=== PATIENT | male | born 1945 | race Caucasian/White ===

== ENCOUNTER 2019-04-19 11:00 | Inpatient (IN) | payer OTHER, MEDICAID ==
[~2019-04-19] VITALS: Ht 170.2 cm; Wt 72.6 kg
[2019-04-19] MEDS ORDERED: SODIUM CHLORIDE 0.9% 1,000 ML IVB ONE (11:33)
[2019-04-19] MEDS ORDERED: ONDANSETRON HCL 4 MG/2 ML VIAL IV ONE (11:45)
[2019-04-19] MEDS ORDERED: MORPHINE SULFATE 4 MG/ML SYR/VIAL IV ONE (11:45)
[2019-04-19 12:01] LABS: Basophils # (auto) 0 uL; Basophils % (auto) 0.2 % (0.0-2.0); Eosinophils # (auto) 0 uL; Eosinophils % (auto) 0.1 % (0.0-7.0); Hematocrit 36.2 % (41.0-53.0); Hemoglobin 12.4 g/dL (13.5-17.5); Lymphocytes # (auto) 0.6 uL; Lymphocytes % (auto) 4.5 % (10.0-50.0); Mean Corpuscular Hemoglobin 32.6 pg (28.0-32.0); Mean Corpuscular Hgb Conc. 34.3 g/dL (32.0-36.0); Mean Corpuscular Volume 94.9 fL (80.0-100.0); Monocytes # (auto) 0.4 uL; Monocytes % (auto) 2.8 % (0.0-12.0); Neutrophils # (auto) 11.6 uL; Neutrophils % (auto) 92.4 % (37.0-80.0); Platelet Count (auto) 428 10^3/uL (140-450); Red Blood Cells 3.81 10^6/uL (4.5-5.90); Red Cell Distribution Width 14.3 % (11.8-14.3); White Blood Cell 12.5 10^3/uL (4.4-10.8)
[2019-04-19 12:27] LABS: Albumin 3.7 g/dL (3.4-5.0); BUN/Creatinine Ratio 12.8; Bilirubin, Total 0.5 mg/dL (0.2-1.0); Total Protein 7.3 g/dL (6.4-8.2)
[2019-04-19 12:39] LABS: Urine Bacteria NONE SEEN /hpf (None Seen); Urine Blood 2+ /uL (Negative); Urine Hyaline Cast FEW /lpf (0 - 2); Urine Mucus FEW (None Seen); Urine Specific Gravity 1.025 (1.001-1.035); Urine WBC 165 /hpf (0 - 3)
[2019-04-19] MEDS ORDERED: PROMETHAZINE HCL 25 MG/ML 1ML IV PRN (14:15)
[2019-04-19] MEDS ORDERED: NITROGLYCERIN 0.4 MG SL TAB SL PRN (14:15)
[2019-04-19] MEDS ORDERED: MORPHINE SULF INJ 2 MG/ML SYRINGE 1ML IV PRN (14:15)
[2019-04-19] MEDS ORDERED: ACETAMINOPHEN 500 MG TAB PO PRN (14:15)
[2019-04-19] MEDS ORDERED: traMADol HCL 50 MG TAB PO PRN (14:15)
[2019-04-19] MEDS ORDERED: cefTRIAXone 1GM/50ML D5W 50 ML IV ONE (14:15)
[2019-04-19] MEDS: SODIUM CHLORIDE 0.9% 1,000 ML IV SCH (14:47)
[2019-04-19 14:51] LABS: Amylase 83 U/L (25-115); Lipase 43 U/L (73-393)
--- NOTE | 2019-04-19 17:30 | NUR ---
Telemetry admit from INNA QUINTANILLA,LIU MUNIZ admitted to Telemetry unit room 246-A after SBAR received. Patient oriented to Camille Brown, primary RN, unit, room, bed, and unit policies regarding patient care and visiting hours. Patient now on continuous telemetry monitoring, tele box #16 and telemetry reading on arrival to unit is sinus rhythm 90bpm with a BBB. Patient placed on bedside oxygen, weighed by bed scale and encouraged to call if they need something. All questions and concerns addressed, patient verbalized understanding.
[2019-04-19 17:46] VITALS: BP 163/94
[2019-04-19] MEDS: MORPHINE SULFATE 4 MG/ML SYR/VIAL IV PRN (18:01)
--- NOTE | 2019-04-19 18:55 | NUR ---
CLOSING NOTE Patient is awake and alert. No S/S of distress/SOB or pain. Bed locked in the lowest position. Bed rails up x2. Call light in reach. Will endorse care to night nurse. Addendum: 04/19/19 at 1856 by Camille Brown RN ENDORSED MED REC TO NIGHT RN.
--- NOTE | 2019-04-19 19:16 | NUR ---
Opening Shift Note Received report from day shift nurse, Camille. Assumed care of patient. Patient is awake, alert, and orientated x 4. Pt is on 3L of oxygen via Nasal cannula. No S/S of distress/SOB, nor pain. No chest pain at this moment. Bed is in lowest position with side rails up x 2. Bed braked are locked and call light is with in reach. HOB is 30 degrees. Instructed on POC and to call for assist PRN, will continue to monitor for changes Q1hr and PRN.
[2019-04-19] MEDS ORDERED: TAMS0.4C36 PO (19:58)
[2019-04-19] MEDS ORDERED: SERT-274 PO (19:58)
[2019-04-19] MEDS ORDERED: ASPI325T25 PO (19:58)
[2019-04-19] MEDS ORDERED: MELO1TAB56 PO (19:58)
[2019-04-19] MEDS ORDERED: TRAM-711 PO (19:58)
[2019-04-19] MEDS ORDERED: HYDR-4833 PO ×2 (19:58→20:11)
[2019-04-19] MEDS ORDERED: PRE5T PO (19:58)
[2019-04-19] MEDS ORDERED: IPRIH INH (20:11)
[2019-04-19] MEDS ORDERED: ALBUAER3 IN (20:11)
[2019-04-19] MEDS ORDERED: [UNRECOGNIZED DRUG - CODE] PO (20:11)
[2019-04-19 21:00] VITALS: BP 158/75
--- NOTE | 2019-04-19 23:02 | NUR ---
Urine urine culture sent to lab.
[2019-04-20] MEDS: SODIUM CHLORIDE 0.9% 1,000 ML IV SCH ×2 (00:13→09:25)
[2019-04-20] MEDS: MORPHINE SULFATE 4 MG/ML SYR/VIAL IV PRN ×2 (02:51→13:57)
[2019-04-20 05:07] VITALS: BP 158/95
[2019-04-20 06:29] LABS: Basophils # (auto) 0.1 uL; Basophils % (auto) 0.6 % (0.0-2.0); Eosinophils # (auto) 0.1 uL; Eosinophils % (auto) 1.3 % (0.0-7.0); Hematocrit 32.5 % (41.0-53.0); Hemoglobin 11.1 g/dL (13.5-17.5); Lymphocytes # (auto) 1.2 uL; Lymphocytes % (auto) 13.3 % (10.0-50.0); Mean Corpuscular Hemoglobin 32.5 pg (28.0-32.0); Mean Corpuscular Hgb Conc. 34.1 g/dL (32.0-36.0); Mean Corpuscular Volume 95.2 fL (80.0-100.0); Monocytes # (auto) 0.6 uL; Monocytes % (auto) 6.9 % (0.0-12.0); Neutrophils # (auto) 7.1 uL; Neutrophils % (auto) 77.9 % (37.0-80.0); Nucleated Red Blood Cells % 0.1 %; Platelet Count (auto) 361 10^3/uL (140-450); Red Blood Cells 3.41 10^6/uL (4.5-5.90); White Blood Cell 9.1 10^3/uL (4.4-10.8)
[2019-04-20 07:03] LABS: Albumin 2.9 g/dL (3.4-5.0); BUN/Creatinine Ratio 12.9; Bilirubin, Total 0.4 mg/dL (0.2-1.0); Calcium 8.4 mg/dL (8.5-10.1); Potassium 3.8 mmol/L (3.5-5.1); Total Protein 5.8 g/dL (6.4-8.2)
--- NOTE | 2019-04-20 07:54 | NUR ---
closing notes endorsed care to day shift nurseCamille.
--- NOTE | 2019-04-20 07:55 | NUR ---
Opening Shift Note Assumed care of patient, awake and alert. No S/S of distress/SOB or pain. Instructed on POC and to call for assist PRN, will continue to monitor for changes Q1hr and PRN.
[2019-04-20 09:00] VITALS: BP 144/79
[2019-04-20] MEDS: cefTRIAXone 1GM/50ML D5W 50 ML IV SCH (09:24)
[2019-04-20] MEDS: PANTOPRAZOLE 40 MG TAB PO SCH (09:25)
[2019-04-20] MEDS ORDERED: predniSONE 5 MG TAB PO ONE (11:30)
[2019-04-20] MEDS ORDERED: SERTRALINE HCL 50 MG TAB PO ONE (11:30)
[2019-04-20] MEDS: IPRATROPIUM BROM 0.5 MG/2.5ML INH SOL NEB SCH ×2 (11:42→18:42)
[2019-04-20] MEDS: ALBUTEROL SULF 2.5 MG/0.5ML(0.5%) NEB SOLN NEB SCH ×2 (11:42→18:42)
--- NOTE | 2019-04-20 11:59 | NUR ---
md dueñas rounded on pt new orders noted
--- NOTE | 2019-04-20 12:11 | NUR ---
pt notified of upcoming procedure to amado cartwright, heart monitor discontinued sent to tele room, updated pt that i will insert damian cath when he comes back from procedure
[2019-04-20] MEDS ORDERED: IOHEXOL 300 MG/ML 100ML BOTTLE IJ ONE (12:16)
--- NOTE | 2019-04-20 12:51 | NUR ---
spoke to md pierce regarding consult and md dueñas order, per md bladder scan pt if pt has less than 100ml of urine no need to cath patient, if cath is necessary use a coude catheter
[2019-04-20 12:57] VITALS: BP 144/79
[2019-04-20 13:00] VITALS: BP 146/79
--- NOTE | 2019-04-20 13:05 | NUR ---
pt voided bladder scan done 342 residual left, called er to bullet catheter to station pt states he doesn't feel that there is urine left over but understands procedure
--- NOTE | 2019-04-20 13:50 | NUR ---
Damian catheter insertion Patient assessed and determined to be in need of damian catheter. Order obtained from stan PEREYRA. Patient educated on catheter and reason for insertion. All questions answered. Damian catheter guage coude Liberian inserted with clean sterile technique. Patient tolerated well.16 arabic coude catheter inserted, 200ml clear light yellow urine output noted, stat lock in place pt tolerated well
[2019-04-20 17:00] VITALS: BP 149/87
[2019-04-20] MEDS ORDERED: TAMSULOSIN HYDROCHLORIDE 0.4 MG CAP PO SCH (18:00)
--- NOTE | 2019-04-20 19:45 | NUR ---
Opening shift note Pt is resting in bed with eyes open and resp rate is even and unlabored. No s/s of any distress noted at this time. Pt has damian cath draining clear yellow urine to gravity and no complaints at this time. Bed is low, wheels are locked, and call light is with in reach.
[2019-04-20 22:00] VITALS: BP 137/72
[2019-04-21] MEDS: MORPHINE SULFATE 4 MG/ML SYR/VIAL IV PRN ×3 (00:11→11:31)
[2019-04-21 04:55] LABS: Basophils # (auto) 0 uL; Basophils % (auto) 0.4 % (0.0-2.0); Eosinophils # (auto) 0.1 uL; Eosinophils % (auto) 1.4 % (0.0-7.0); Hematocrit 35.7 % (41.0-53.0); Hemoglobin 12.3 g/dL (13.5-17.5); Lymphocytes # (auto) 1.3 uL; Mean Corpuscular Hemoglobin 32.7 pg (28.0-32.0); Mean Corpuscular Hgb Conc. 34.4 g/dL (32.0-36.0); Mean Corpuscular Volume 95.1 fL (80.0-100.0); Monocytes # (auto) 0.6 uL; Neutrophils # (auto) 8.4 uL; Neutrophils % (auto) 80.2 % (37.0-80.0); Platelet Count (auto) 411 10^3/uL (140-450); Red Blood Cells 3.75 10^6/uL (4.5-5.90); Red Cell Distribution Width 14.2 % (11.8-14.3); White Blood Cell 10.4 10^3/uL (4.4-10.8)
[2019-04-21 05:00] VITALS: BP 162/88
[2019-04-21 05:15] LABS: BUN/Creatinine Ratio 11.9; Calcium 8.6 mg/dL (8.5-10.1); Potassium 3.7 mmol/L (3.5-5.1)
[2019-04-21 05:30] LABS: INR 0.95 (0.9-1.15); Partial Thromboplastin Time 26.7 sec (23.64-32.05)
[2019-04-21] MEDS: SODIUM CHLORIDE 0.9% 1,000 ML IV SCH ×2 (06:13→06:39)
[2019-04-21] MEDS: ALBUTEROL SULF 2.5 MG/0.5ML(0.5%) NEB SOLN NEB SCH (06:43)
[2019-04-21] MEDS: IPRATROPIUM BROM 0.5 MG/2.5ML INH SOL NEB SCH (06:43)
[2019-04-21 08:35] VITALS: BP 123/77
[2019-04-21] MEDS: cefTRIAXone 1GM/50ML D5W 50 ML IV SCH (09:37)
[2019-04-21] MEDS: PANTOPRAZOLE 40 MG TAB PO SCH (09:38)
[2019-04-21] MEDS ORDERED: predniSONE 5 MG TAB PO SCH (10:00)
[2019-04-21] MEDS ORDERED: SERTRALINE HCL 50 MG TAB PO SCH (10:00)
[2019-04-21 13:00] VITALS: BP 142/78
[2019-04-21 14:24] VITALS: BP 147/71
--- NOTE | 2019-04-21 15:12 | NUR ---
DISCHARGE INSTRUCTIONS PROVIDED TO PT. PT VERBALIZED UNDERSTANDING FOR PRESCRIPTION ORDERS, AND FOLLOW UP APPOINTMENT WITH PRIMARY CARE PROVIDER AND UROLOGY; CONTACT INFORMATION PROVIDED, ALL QUESTIONS AND CONCERNS ADDRESSED, EDUCATIONAL MATERIAL PROVIDED. LEG BAG APPLIED TO OLMOS CATHETER FOR DISCHARGE, OLMOS CATHETER CARE PROVIDED, PT RETURN DEMONSTRATION ON OLMOS CATHETER CARE. IV CATHETER DC'D; CATHETER INTACT, NO PHLEBITIS. PT SAFELY ESCORTED OUT OF UNIT VIA WHEELCHAIR, ACCOMPANIED BY FAMILY MEMBERS.
== END 2019-04-21 15:20 | disposition home or self-care (01) | DRG 872 ==
LOC: ER 11:00 → TELE 11:01 → TELE-EAST 17:15 → EAST 04-20 15:58
PROVIDERS: ADMIT Internal Medicine; ATTEND Internal Medicine
DX: A41.9 Sepsis, unspecified organism (principal); N39.0 Urinary tract infection, site not specified; N17.9 Acute kidney failure, unspecified; N20.0 Calculus of kidney; N28.1 Cyst of kidney, acquired; F17.210 Nicotine dependence, cigarettes, uncomplicated; J43.9 Emphysema, unspecified; M81.0 Age-related osteoporosis without current pathological fracture; N32.0 Bladder-neck obstruction
CPT/HCPCS: 36415; 74176; 74177; 76700; 80048; 80053; 81001; 82150; 83690; 85025; 85610; 85652; 85730; 87086; 94640; 94761; 96361; 96365; 96375; G0378; J0696; J2405

== ENCOUNTER 2019-04-21 23:23 | Inpatient (IN) | payer OTHER, MEDICAID ==
[~2019-04-21] VITALS: Ht 170.2 cm; Wt 74.6 kg
[~2019-04-21 23:23] MED LIST: ALBUAER3 IN; ASPI325T25 PO; HYDR-4833 PO; IPRIH INH; MELO1TAB56 PO; PRE5T PO; SERT-274 PO; TAMS0.4C36 PO; TRAM-711 PO; [UNRECOGNIZED DRUG - CODE] PO
[2019-04-21] MEDS ORDERED: IPRATROPIUM BROM 0.5 MG/2.5ML INH SOL NEB ONE (23:30)
[2019-04-21] MEDS ORDERED: ALBUTEROL SULF 2.5 MG/0.5ML(0.5%) NEB SOLN HHN STA (23:30)
[2019-04-21 23:49] LABS: Basophils # (auto) 0 uL; Basophils % (auto) 0.1 % (0.0-2.0); Eosinophils # (auto) 0 uL; Eosinophils % (auto) 0.1 % (0.0-7.0); Hematocrit 34.3 % (41.0-53.0); Hemoglobin 11.3 g/dL (13.5-17.5); Lymphocytes # (auto) 0.6 uL; Mean Corpuscular Hemoglobin 31.9 pg (28.0-32.0); Mean Corpuscular Volume 96.8 fL (80.0-100.0); Monocytes # (auto) 0.5 uL; Monocytes % (auto) 3.6 % (0.0-12.0); Neutrophils % (auto) 92.2 % (37.0-80.0); Platelet Count (auto) 449 10^3/uL (140-450); Red Blood Cells 3.55 10^6/uL (4.5-5.90); Red Cell Distribution Width 14.2 % (11.8-14.3); White Blood Cell 15.1 10^3/uL (4.4-10.8)
[2019-04-22] VITALS (71 sets, daily range): BP systolic 61–149; BP diastolic 38–83
[2019-04-22 00:03] LABS: INR 0.99 (0.9-1.15); Partial Thromboplastin Time 23.3 sec (23.64-32.05)
[2019-04-22 00:06] LABS: Alanine Aminotransferase 12 U/L (16-61); Albumin 2.9 g/dL (3.4-5.0); Anion Gap 10 (5-15); Aspartate Aminotransferase 14 U/L (15-37); BUN/Creatinine Ratio 15.4; Blood Urea Nitrogen 19 mg/dL (7-18); Calcium 8.5 mg/dL (8.5-10.1); Carbon Dioxide 24 mmol/L (21-32); Chloride 107 mmol/L (98-107); GFR African American 74 mL/min; GFR Non-African American 61 mL/min; Glucose 159 mg/dL (74-106); Potassium 4.4 mmol/L (3.5-5.1); Sodium 141 mmol/L (136-145)
[2019-04-22 00:11] LABS: Alkaline Phosphatase 61 U/L (45-117); Bilirubin, Total 0.4 mg/dL (0.2-1.0); Total Protein 6.4 g/dL (6.4-8.2)
[2019-04-22] MEDS ORDERED: ALBUTEROL SULF 2.5 MG/0.5ML(0.5%) NEB SOLN NEB ONE (01:45)
[2019-04-22] MEDS ORDERED: IPRATROPIUM BROM 0.5 MG/2.5ML INH SOL NEB ONE (01:45)
[2019-04-22] MEDS ORDERED: methylPREDNISolone SOD SUCC 125 MG/2 ML VL IV ONE (01:45)
[2019-04-22] MEDS ORDERED: DOXYCYCLINE 100MG/250ML 250 ML IV SCH (01:45)
[2019-04-22] MEDS ORDERED: LORazepam 2MG/ML-1ML VIAL ONE (01:48)
[2019-04-22] MEDS ORDERED: LORazepam 2MG/ML-1ML VIAL IV ONE (02:00)
[2019-04-22] MEDS: PROPOFOL 100 ML IV SCH (02:10)
[2019-04-22] MEDS ORDERED: ETOMIDATE (2MG/ML) 20ML VIAL IV ONE ×2 (02:12→02:15)
[2019-04-22] MEDS ORDERED: SUCCINYLCHOLINE CHLORIDE 20 MG/ML 10ML VIAL IV ONE ×2 (02:12→02:15)
[2019-04-22] MEDS: MIDAZOLAM DRIP 50 mg/50mL 50 ML IV SCH ×4 (02:20→18:11)
[2019-04-22] MEDS: ALBUTEROL SULF 2.5 MG/0.5ML(0.5%) NEB SOLN NEB SCH ×6 (02:30→21:57)
[2019-04-22] MEDS: IPRATROPIUM BROM 0.5 MG/2.5ML INH SOL NEB SCH ×6 (02:30→21:57)
[2019-04-22] MEDS ORDERED: NOREPINEPHRINE 8 MG/250ML KIT 250 ML IV ONE (03:07)
[2019-04-22] MEDS: NOREPINEPHRINE 8 MG/250ML KIT 250 ML IV SCH ×2 (03:15→13:45)
[2019-04-22 03:24] LABS: Basophils # (auto) 0 uL; Basophils % (auto) 0.3 % (0.0-2.0); Eosinophils # (auto) 0 uL; Eosinophils % (auto) 0.2 % (0.0-7.0); Hematocrit 28.2 % (41.0-53.0); Hemoglobin 8.8 g/dL (13.5-17.5); Lymphocytes # (auto) 1.3 uL; Lymphocytes % (auto) 9.3 % (10.0-50.0); Mean Corpuscular Hemoglobin 32.6 pg (28.0-32.0); Mean Corpuscular Hgb Conc. 31.4 g/dL (32.0-36.0); Mean Corpuscular Volume 104.1 fL (80.0-100.0); Monocytes # (auto) 0.4 uL; Monocytes % (auto) 2.9 % (0.0-12.0); Neutrophils # (auto) 12.4 uL; Neutrophils % (auto) 87.3 % (37.0-80.0); Nucleated Red Blood Cells % 0.1 %; Platelet Count (auto) 370 10^3/uL (140-450); Red Blood Cells 2.71 10^6/uL (4.5-5.90); Red Cell Distribution Width 15.1 % (11.8-14.3); White Blood Cell 14.2 10^3/uL (4.4-10.8)
[2019-04-22 03:41] LABS: Anion Gap 12 (5-15); BUN/Creatinine Ratio 16.1; Blood Urea Nitrogen 23 mg/dL (7-18); Calcium 7.7 mg/dL (8.5-10.1); Carbon Dioxide 19 mmol/L (21-32); Chloride 110 mmol/L (98-107); GFR African American 62 mL/min; GFR Non-African American 51 mL/min; Glucose 221 mg/dL (74-106); Potassium 4.8 mmol/L (3.5-5.1); Sodium 141 mmol/L (136-145)
[2019-04-22] MEDS: fentaNYL Drip 2500mCg/250mlNS 250 ML IV SCH (04:57)
--- NOTE | 2019-04-22 06:08 | NUR ---
Respiratory note: TITRATED FIO2 TO 70%, RN NOTIFIED.
[2019-04-22] MEDS: methylPREDNISolone SOD SUCC 40 MG/ML VL IV SCH ×2 (06:42→14:21)
--- NOTE | 2019-04-22 07:39 | NUR ---
Respiratory note: TITRATED FIO2 TO 40% POST ABG PER . RN KOBE NOTIFIED.
[2019-04-22] MEDS: PANTOPRAZOLE 40 MG TAB PO SCH ×2 (07:50→10:36)
--- NOTE | 2019-04-22 09:00 | NUR ---
SEE IV SPREAD SHEET FOR TITRATION OF FENTANYL AND VERSED Addendum: 04/22/19 at 2004 by Vy Santana RN Amended: Links added.
--- NOTE | 2019-04-22 09:55 | NUR ---
Respiratory note: TITRATED FIO2 TO 35%.
[2019-04-22] MEDS ORDERED: PANTOPRAZOLE 40 MG/10 ML VIAL INJ IV SCH (10:00)
--- NOTE | 2019-04-22 10:00 | NUR ---
WOUND CARE NOTE: IN TO SEE PATIENT AT THIS TIME FOR SKIN INTEGRITY MONITORING. PATIENT ADMITTED TO [facility] WITH DIAGNOSIS OF COPD EXACERBATION. PATIENT IS INTUBATED, SEDATED IN ER, ON ICU HOSPITAL BED. PATIENT IS WOUND FREE AT THIS TIME. SKIN/WOUND CARE PLAN IMPLEMENTED FOR LOW FLORINA SCORE OF 10. PATIENT WOULD BENEFIT FROM FREQUENT TURN SCHEDULE Q 2 HOURS, PRN CONDITION PERMITS WITH PRESSURE REDISTRIBUTION USING PILLOWS/WEDGES, BID/PRN APPLICATION WITH MOISTURE BARRIER CREAM, OPTIFOAM GENTLE SACRAL DRESSING BID/PRN, DIETARY CONSULT FOR LOW FLORINA, CONTINUED MONITORING BY WOUND CARE TEAM.
[2019-04-22] MEDS ORDERED: LEVOFLOXACIN 500MG 100 ML IV SCH (10:26)
[2019-04-22] MEDS: SERTRALINE HCL 50 MG TAB PO SCH (10:34)
[2019-04-22] MEDS: ASPirin-EC 81 mg tab PO SCH (10:34)
[2019-04-22 12:12] LABS: Basophils # (auto) 0 uL; Eosinophils # (auto) 0 uL; Monocytes # (auto) 0.2 uL; Monocytes % (auto) 1.3 % (0.0-12.0)
[2019-04-22 12:14] LABS: Hematocrit 25.2 % (41.0-53.0); Hemoglobin 8.5 g/dL (13.5-17.5); Lymphocytes # (auto) 0.8 uL; Lymphocytes % (auto) 4.2 % (10.0-50.0); Mean Corpuscular Hemoglobin 32.4 pg (28.0-32.0); Mean Corpuscular Hgb Conc. 33.7 g/dL (32.0-36.0); Mean Corpuscular Volume 96.2 fL (80.0-100.0); Neutrophils # (auto) 17.3 uL; Neutrophils % (auto) 94.5 % (37.0-80.0); Platelet Count (auto) 492 10^3/uL (140-450); Red Blood Cells 2.62 10^6/uL (4.5-5.90); Red Cell Distribution Width 14.3 % (11.8-14.3); White Blood Cell 18.3 10^3/uL (4.4-10.8)
--- NOTE | 2019-04-22 12:30 | NUR ---
DR KUMARI VISITS AND EXAMINES PATIENT - ORDERS RECEIVED.
[2019-04-22] MEDS ORDERED: fentaNYL CITRATE 100 MCG/2 ML VL ONE (12:46)
[2019-04-22] MEDS ORDERED: SODIUM CHLORIDE LOCK 10 ML ONE (12:46)
[2019-04-22] MEDS ORDERED: MIDAZOLAM HCL 5 MG/ML-1ML VIAL ONE (12:46)
[2019-04-22] MEDS ORDERED: diphenhdrAMINE HCL 50 MG/1 ML VL ONE (12:47)
--- NOTE | 2019-04-22 13:00 | NUR ---
DR GRACE AT BEDSIDE FOR EGD.
[2019-04-22] MEDS: SODIUM CHLORIDE 0.9% 1,000 ML IV SCH (13:16)
--- NOTE | 2019-04-22 14:30 | NUR ---
DR GUZMAN NOTIFIED OF LOW URINE OUTPUT.
--- NOTE | 2019-04-22 14:34 | NUR ---
CXR TAKEN TO VERIFY PLACEMENT OF OG TUBE.
[2019-04-22 15:44] LABS: Urine Bacteria FEW /hpf (None Seen); Urine Blood 2+ /uL (Negative); Urine Mucus FEW (None Seen); Urine Specific Gravity 1.019 (1.001-1.035); Urine WBC 18 /hpf (0 - 3)
[2019-04-22] MEDS ORDERED: POTASSIUM CHL 20MEQ/100ML 100 ML IV ONE (16:15)
[2019-04-22] MEDS: TAMSULOSIN HYDROCHLORIDE 0.4 MG CAP PO SCH (18:26)
--- NOTE | 2019-04-22 19:30 | NUR ---
PT SEDATED ON VENT, RESPONDS TO PAINFUL STIMULI, AFEBRILE. ETT 8.0/24LL, VENT SETTINGS: AC14/TV600/FIO2 30%/PEEP5, [id number]%. OLMOS CATH IN PLACE, W/ YELLOW URINE. OGT PLACEMENT CHECKED, CLAMPED. SAFETY PRECAUTIONS IN PLACE. WILL CONTINUE TO MONITOR.
--- NOTE | 2019-04-22 20:00 | NUR ---
BM, MEDIUM SIZED, SOFT DARK BLOODY STOOL, SPECIMEN COLLECTED AND SENT TO LAB.
[2019-04-23] VITALS (87 sets, daily range): BP systolic 85–171; BP diastolic 46–84
--- NOTE | 2019-04-23 | NUR ---
BEDBATH GIVEN, LINENS CHANGED, PT TOLERATED WELL.
[2019-04-23] MEDS: PANTOPRAZOLE 40 MG/10 ML VIAL INJ IV SCH ×3 (00:11→22:33)
[2019-04-23] MEDS: methylPREDNISolone SOD SUCC 40 MG/ML VL IV SCH ×4 (00:12→22:33)
[2019-04-23] MEDS: NOREPINEPHRINE 8 MG/250ML KIT 250 ML IV SCH ×2 (00:13→12:56)
[2019-04-23] MEDS: MIDAZOLAM DRIP 50 mg/50mL 50 ML IV SCH ×4 (00:13→18:49)
[2019-04-23] MEDS: SODIUM CHLORIDE 0.9% 1,000 ML IV SCH ×2 (01:19→14:57)
[2019-04-23] MEDS: PROPOFOL 100 ML IV SCH (02:10)
[2019-04-23] MEDS: IPRATROPIUM BROM 0.5 MG/2.5ML INH SOL NEB SCH ×6 (02:15→21:51)
[2019-04-23] MEDS: ALBUTEROL SULF 2.5 MG/0.5ML(0.5%) NEB SOLN NEB SCH ×6 (02:15→21:51)
--- NOTE | 2019-04-23 04:15 | NUR ---
RT AT BEDSIDE FOR ABG. PT TOLERATING WELL.
[2019-04-23 06:24] LABS: Hemoglobin 7.2 g/dL (13.5-17.5)
[2019-04-23 06:26] LABS: Hematocrit 21.2 % (41.0-53.0); Mean Corpuscular Hemoglobin 32.7 pg (28.0-32.0); Mean Corpuscular Hgb Conc. 33.8 g/dL (32.0-36.0); Mean Corpuscular Volume 96.6 fL (80.0-100.0); Platelet Count (auto) 365 10^3/uL (140-450); Red Cell Distribution Width 14.4 % (11.8-14.3)
[2019-04-23 06:30] LABS: Band Neutrophils % (manual) 0; Basophils % (manual) 0 (0.0-2.0); Blast Cells 0; Eosinophils % (manual) 0 (0-7); Metamyelocytes % 0; Myelocytes % 0; Promyelocytes % 0; Reactive Lymphocytes 0
[2019-04-23 06:35] LABS: Albumin 2.3 g/dL (3.4-5.0); Calcium 7.8 mg/dL (8.5-10.1); Magnesium 1.9 mg/dL (1.6-2.6)
[2019-04-23 06:38] LABS: BUN/Creatinine Ratio 18.2; Bilirubin, Total 0.2 mg/dL (0.2-1.0); Total Protein 5.2 g/dL (6.4-8.2)
[2019-04-23] MEDS: fentaNYL Drip 2500mCg/250mlNS 250 ML IV SCH ×2 (06:39→21:22)
[2019-04-23 06:43] LABS: Lymphocytes % (manual) 4 (10.0-50.0); Monocytes % (manual) 7 (0-12)
--- NOTE | 2019-04-23 07:00 | NUR ---
Pt being admitted to ICU- Patient is an "ICU ER hold" Note: Report from Lidya this morning LIU QUINTANILLA admitted to ICU -ER hold at this time on bedside monitor, and ventilator. Patient in bed bed, connected to ICU monitoring and oxygen, and [facility] Patient unresponsive primary RN Sol Goodson. NOTE: See interventions for specific patient details.
--- NOTE | 2019-04-23 08:10 | NUR ---
ICU ADMIT- MRSA SWAB SENT TO LAB.
[2019-04-23] MEDS ORDERED: LEVOFLOXACIN 250MG 50 ML IV SCH (10:00)
[2019-04-23] MEDS: ASPirin-EC 81 mg tab PO SCH (10:18)
[2019-04-23] MEDS: SERTRALINE HCL 50 MG TAB PO SCH (10:18)
--- NOTE | 2019-04-23 11:00 | NUR ---
CONSULTS NOTIFIED BY LEATHER STRIPPING MACHINE OPERATOR: *DR. CULVER AND NEPHROLOGY.
--- NOTE | 2019-04-23 11:51 | NUR ---
Respiratory note: DR KUMARI AT BEDSIDE, ORDERED NEW VENT SETTINGS: PCV RR 20, PRESSURE 20, I TIME 0.8, PEEP +8, FIO2 40%. PT TOLERATING CHANGES WELL WITH BETTER VENT SYNCHRONY. ABG TO FOLLOW. NOTIFIED SUDHA FORMAN OF CHANGES. WILL CONTINUE TO MONITOR.
--- NOTE | 2019-04-23 11:53 | NUR ---
DR. KUMARI AT BEDSIDE: 2 MD CONSENT FOR BRONCH SIGNED AND DR. KUMARI SIGNED WELL.
[2019-04-23] MEDS ORDERED: BENZOCAINE (DENTAL) 20 % SPRAY 60ML MT ONE (12:38)
[2019-04-23] MEDS ORDERED: LIDOCAINE 2%HCL (LOCAL ANESTH.) INJ 20ML MDV ONE (12:38)
[2019-04-23] MEDS ORDERED: EPINEPHrine HCL 1 MG/1 ML AMP ONE (12:38)
[2019-04-23] MEDS ORDERED: LIDOCAINE HCL 2% TOP JELLY 5ML TOP ONE (12:38)
[2019-04-23] MEDS ORDERED: SODIUM CHLORIDE LOCK 20 ML ONE (12:38)
[2019-04-23] MEDS ORDERED: ACETYLCYSTEINE 10 %(100MG/ML) SOL 4ML NEB ONE (12:45)
--- NOTE | 2019-04-23 12:45 | NUR ---
Dr. Ojeda at bedside: Patient assessed no new orders.
--- NOTE | 2019-04-23 12:59 | NUR ---
PATIENT SEEN AND ASSESSED BY DR. JOYCE AT BEDSIDE.
[2019-04-23] MEDS ORDERED: ACETYLCYSTEINE 20%(200MG/ML) SOLN 30ML ONE (13:04)
[2019-04-23] MEDS ORDERED: ACETYLCYSTEINE 10 %(100MG/ML) SOL 4ML ONE (13:04)
--- NOTE | 2019-04-23 13:05 | NUR ---
Dr. Fenton and team at the bedside for Bronchoscopy procedure.
--- NOTE | 2019-04-23 13:28 | NUR ---
Dr. Gonsales ordered labs- and one unit PRBC's after Type and Cross.
--- NOTE | 2019-04-23 13:30 | NUR ---
Respiratory note: DR KUMARI, OR TEAM, AND THIS RT AT BEDSIDE FOR BRONCHOSCOPY. PROCEDURE COMPLETED WITHOUT INCIDENT.
--- NOTE | 2019-04-23 14:23 | NUR ---
Dr. Wang at bedside: Monitor strict I&O. Addendum: 04/23/19 at 1425 by Sol Goodson RN Wrong patient.
--- NOTE | 2019-04-23 15:26 | NUR ---
PULMONOLOGY IN ICU DR KUMARI AWARE OF PENDING TRANSFER OF PATIENT FROM ER TO ICU BED 109. DR KUMARI REVIEWED LATEST ABG AND ORDERS RECEIVED ONCE PATIENT ARRIVES TO UNIT WITH REPEAT ABG ONE HOUR AFTER. TRANSPORT R.T. WILL BE NOTIFIED.
[2019-04-23] MEDS ORDERED: cefTRIAXone 1GM/50ML D5W 50 ML IV ONE (15:30)
[2019-04-23] MEDS ORDERED: SODIUM BICARBONATE 8.4 % INJ 50ML VIAL IV ONE (15:45)
--- NOTE | 2019-04-23 16:01 | NUR ---
SBAR report given to SUDHA Mclean in the ICU unit.
--- NOTE | 2019-04-23 16:15 | NUR ---
Patient transported to ICU via bed: RT bagging patient, on alarm security or surveillance monitor and 02. Patient stable on arrival and hooked up to bedside monitor and ventilator. SUDHA Mclean at bedside.
--- NOTE | 2019-04-23 16:20 | NUR ---
NUTRITION CONSULT/ASSESSMENT NOTES Please refer to link notes of nutrition screen form filed under the intervention section of the plan of care for further details. Est. Needs: 1850 kcal to 2200 kcal (25-30 kcal/kgBW), 58 gms to 73 gms pro (0.8-1.0 gms/kgBW). Will continue to monitor pertinent labs and reassess nutrient need prn Thank you for this consult.
--- NOTE | 2019-04-23 16:21 | NUR ---
CONTACT HOSPITALIST REPORT RECEIVED FROM SUDHA FORMAN, THIS NURSE NOTIFIED THAT BLOOD TRANSFUSION IS PENDING AND NO FAMILY AVAILABLE TO SIGN CONSNET. CONTACT DR GUZMAN TO INFORM OF PENDING 1U PRBC AND NO FAMILY AVAILABLE TO SIGN CONSENT. DR GUZMAN STATED HE WOULD COME TO UNIT TO SIGN CONSENT ALONG WITH DR KUMARI. AWAITING PATIENT ARRIVAL TO ICU.
--- NOTE | 2019-04-23 16:24 | NUR ---
Admit to ICU from ER on vent LIU QUINTANILLA admitted to ICU via gurney on inverted block operator, intubated and being bagged by Respiratory Therapist. Patient transferred to bed, connected to mechanical ventilator by therapist, LANG at bedside. Patient connected to ICU monitoring, [facility], oriented to Caridad Stanton, primary RN, unit, ventilator and sedation. No distress noted, respirations even and unlabored. Pascual catheter patent and draining clear/yellow urine to gravity. Patient repositioned for comfort. No bowel movement noted on arrival to unit. Physical assessment performed and documented. Fall and safety precautions in place. Close monitoring. Addendum: 04/23/19 at 1809 by Caridad Stanton RN ALISON BARRAGAN R.TCatia NOTIFIED OF DR KUMARI' REQUEST TO REPEAT ABG IN ONE HOUR AFTER ADMINISTRATION OF 1 AMPULE SODIUM BICARBONATE. YUNG ALSO AWARE OF DOCTOR'S REQUEST TO CONNECT TO BEDSIDE Co2. YUNG VERBALIZED UNDERSTANDING.
--- NOTE | 2019-04-23 16:30 | NUR ---
RT Transport Note: Patient transported to ICU 105 with RN Sol and hotel recreational facilities manager. Patient transported on personnel monitor with alarms set and audible, ambu bag connected to O2 tank. Upon arrival, placed pt back on ventilator on previously ordered settings. Transport completed without incident.
[2019-04-23] MEDS: LINEZOLID 600MG/300ML 300 ML IV SCH (16:48)
--- NOTE | 2019-04-23 17:45 | NUR ---
BLOOD TRANSFUSION STARTED ONE UNIT PRBC ORDERED BY STARTED, VSS AND DOCUMENTED. IV SITE PATENT - WILL MONITOR PATIENT FOR S/S OF TRANSFUSION REACTION.
[2019-04-23] MEDS: TAMSULOSIN HYDROCHLORIDE 0.4 MG CAP PO SCH (18:00)
--- NOTE | 2019-04-23 18:04 | NUR ---
15 MIN TRANSFUSION REASSESSMENT VSS AND DOCUMENTED, NO S/S NOTED OF TRANSFUSION REACTION. INCREASED TRANSFUSION RATE.
--- NOTE | 2019-04-23 19:00 | NUR ---
OPENING NOTE ASSUMED CARE OF PATIENT AT THIS TIME. REPORT RECEIVED FROM DAY SHIFT RN. POC REVIEWED. HEAD TO TOE ASSESSMENT COMPLETE, SEE INTERVENTION SPREADSHEET FOR COMPLETE DETAILS. RECEIVED PT SEDATED ON VENTILATOR, LEVO AT 3 MCG. VSS. RECTAL TEMP MONITORING IN PROGRESS. IV SITES BENIGN. SUCTION AND BVM AT BEDSIDE. BED LOCKED AND IN LOWEST POSITION, SAFETY PRECAUTIONS IN PLACE. WILL MONITOR PT CAREFULLY.
--- NOTE | 2019-04-23 19:05 | NUR ---
END OF SHIFT NOTE PATIENT LAYING IN BED, SEDATED/MECHANICALLY VENTILATED. VSS AND DOCUMENTED, NO DISTRESS NOTED, RESPIRATIONS EVEN AND UNLABORED. ENDORSED CONTINUED CARE AND COMPLETION OF BLOOD TRANSFUSION TO CONVERSION DEVELOPER RN.
--- NOTE | 2019-04-23 19:45 | NUR ---
SEDATION VERSED TURNED OFF AT THIS TIME TO ASSESS NEURO STATUS.
[2019-04-23] MEDS: MEROPENEM 500MG IVPB 50 ML IV SCH (19:56)
--- NOTE | 2019-04-23 20:28 | NUR ---
BLOOD PRODUCTS COMPLETED TRANSFUSION AT THIS TIME. NO ADVERSE REACTIONS NOTED.
--- NOTE | 2019-04-23 21:25 | NUR ---
FRIEND, WOMENS HEALTH NURSE PRACTITIONER'S PJ ENG CAME TO VISIT. UNABLE TO PROVIDE ANY INFORMATION NO PASSWORD HAS BEEN SET UP. SHE WOULD LIKE TO BE NOTIFIED IF ANYTHING HAPPENS. NUMBER TO REACH PJ AT [phone]. VERBALIZED UNDERSTANDING OF HIPPA RULES. ICU POLICY AND VISITATION HOURS PROVIDED AT THIS TIME.
[2019-04-24] VITALS (83 sets, daily range): BP systolic 96–181; BP diastolic 54–90
[2019-04-24] MEDS: PROPOFOL 100 ML IV SCH (02:10)
[2019-04-24] MEDS: ALBUTEROL SULF 2.5 MG/0.5ML(0.5%) NEB SOLN NEB SCH ×6 (02:23→22:03)
[2019-04-24] MEDS: IPRATROPIUM BROM 0.5 MG/2.5ML INH SOL NEB SCH ×6 (02:23→22:03)
--- NOTE | 2019-04-24 03:35 | NUR ---
Neuro status Pt awake able to follow commands and answer questions. Pt oriented to hospital. Pt nodded head in understanding. Pt denies pain, denies discomfort. Updated on POC, pt wants to rest till am. Fent increased to 180mcg for pt comfort. Will continue with care. vss at this time.
[2019-04-24] MEDS: SODIUM CHLORIDE 0.9% 1,000 ML IV SCH ×2 (03:45→06:06)
[2019-04-24 04:16] LABS: Hematocrit 23.2 % (41.0-53.0); Mean Corpuscular Hemoglobin 32.3 pg (28.0-32.0); Mean Corpuscular Hgb Conc. 34.5 g/dL (32.0-36.0); Mean Corpuscular Volume 93.7 fL (80.0-100.0); Platelet Count (auto) 293 10^3/uL (140-450); Red Blood Cells 2.48 10^6/uL (4.5-5.90); Red Cell Distribution Width 14.6 % (11.8-14.3); White Blood Cell 18.5 10^3/uL (4.4-10.8)
[2019-04-24 04:18] LABS: % Iron Saturation 43.9 % (20-55); Albumin 2.3 g/dL (3.4-5.0); Basophils % (manual) 0 (0.0-2.0); Blast Cells 0; Calcium 7.8 mg/dL (8.5-10.1); Eosinophils % (manual) 0 (0-7); Metamyelocytes % 0; Myelocytes % 0; Potassium 4.7 mmol/L (3.5-5.1); Promyelocytes % 0; Reactive Lymphocytes 0
[2019-04-24 04:21] LABS: BUN/Creatinine Ratio 27.1; Bilirubin, Total 0.2 mg/dL (0.2-1.0); Total Protein 5.1 g/dL (6.4-8.2)
[2019-04-24] MEDS: MEROPENEM 500MG IVPB 50 ML IV SCH ×2 (04:23→14:25)
[2019-04-24 04:26] LABS: Ferritin 104.8 ng/mL (10-322)
[2019-04-24 04:27] LABS: Folate (Folic Acid) 1.82 ng/mL (5.38-24)
[2019-04-24 04:38] LABS: Band Neutrophils % (manual) 2; Lymphocytes % (manual) 2 (10.0-50.0); Monocytes % (manual) 4 (0-12)
--- NOTE | 2019-04-24 05:40 | NUR ---
JAVED CARE/PARTIAL LINEN CHANGE PT HAD SMEAR OF DARK RED STOOL. PT CLEANED. PT TOLERATED WELL. PT DENIES PAIN AND DISCOMFORT. SUCTION TUBING AND CANISTER CHANGED AT THIS TIME. PT CONTINUES TO FOLLOW COMMANDS AND ANSWER QUESTIONS APPROPRIATELY. SAFETY PRECAUTIONS MAINTAINED. WILL CONTINUE WITH CARE.
[2019-04-24] MEDS: methylPREDNISolone SOD SUCC 40 MG/ML VL IV SCH ×3 (06:05→22:11)
[2019-04-24] MEDS: LINEZOLID 600MG/300ML 300 ML IV SCH ×2 (06:06→17:00)
--- NOTE | 2019-04-24 07:30 | NUR ---
REPORT REPORT RECEIVED FROM NIGHT RNLEAH. BEDSIDE CHECK DONE AND PT AWAKE AND NODS HEAD APPROPRIATELY TO YES AND NO QUESTIONS. DENIES PAIN AND STATES HE IS DOING OKAY WHEN ASKED.
--- NOTE | 2019-04-24 08:30 | NUR ---
ASSESSMENT PT AWAKE AND A/O AND FOLLOWS SIMPLE COMMANDS. STILL ON FENTANYL DRIP FOR SEDATION. VENTILATOR SETTINGS OF : 8 FR ETT/25 AT THE LIP, PRESSURE CONTROL MODE WITH RATE OF 20, PRESSURE OF 22 , 30% FIO2, PEEP OF 8 AND I TIME OF 8. LUNGS CLEAR THROUGHOUT. TELE SR 98 WITH BBB. PALPABLE PULSES TO ALL EXTREMITIES WITH NO EDEMA NOTED. ABD SOFT WITH HYPOACTIVE BOWEL SOUNDS NOTED. OGT WITH + PLACEMENT AND CLAMPED WITH NO RESIDUAL NOTED. OLMOS CATHETER WITH CLEAR YELLOW URINE TURNED FOR COMFORT AND SKIN CLEAR. RAILS UP X4 FOR PT SAFETY . CONTINUE TO MONITOR.
[2019-04-24] MEDS ORDERED: cefTRIAXone 1GM/50ML D5W 50 ML IV SCH ×2 (09:00)
--- NOTE | 2019-04-24 09:00 | NUR ---
DR KUMARI/PHONE RECEIVED A PHONE CALL FROM DR KUMARI REQUESTING UPDATE ON PT'S CONDITION, END TIDAL CO2 READINGS AND ABG. HE WANTS AN ABG DONE NOW. IF pH GREATER THAN 7.30, THEN PROCEED WITH CPAP TRIAL, AND IF NOT GREATER THAN 7.30, NOTIFY HIM.
--- NOTE | 2019-04-24 10:30 | NUR ---
PT AWAKE AND FOLLOWING SIMPLE COMMANDS. TURNED OFF FENTANYL AND YUNG, RT, STARTED PT ON CPAP TRIAL.
--- NOTE | 2019-04-24 10:31 | NUR ---
Respiratory note: PT AWAKE, ALERT, AND FOLLOWING SIMPLE COMMANDS. PLACED PT ON CPAP TRIAL PER DR KUMARI'S ORDERS. PT TOLERATING CHANGES WELL, RESTING COMFORTABLY IN BED. GATHERED WEANING PARAMETERS: NIF -22, VC 1019 ML, RSBI 21, LEAK 168 ML. SUDHA GONZALEZ AT BEDSIDE, MADE AWARE OF CHANGES. ABG TO FOLLOW. WILL CONTINUE TO MONITOR.
[2019-04-24] MEDS: FOLIC ACID 1 MG in D5W 5% 50 ML IV SCH (10:36)
[2019-04-24] MEDS: SERTRALINE HCL 50 MG TAB PO SCH (10:37)
[2019-04-24] MEDS: PANTOPRAZOLE 40 MG/10 ML VIAL INJ IV SCH ×2 (10:37→22:10)
[2019-04-24] MEDS: CYANOCOBALAMIN (B-12) 1000 MCG/1 ML VIAL SUBCUT SCH (10:38)
--- NOTE | 2019-04-24 11:16 | NUR ---
CRITICAL LAB NOTIFIED BY ERICK HURT, THAT BUN 158 AND CREATININE OF 2.82. PT HAS BEEN ON HDX BUT NO FURTHER HDX PER FAMILY REQUEST. WILL NOTIFY DR JOYCE WHEN HE ROUNDS. Addendum: 04/24/19 at 1117 by Stacey Bell RN ERROR/WRONG CHART
--- NOTE | 2019-04-24 11:45 | NUR ---
Respiratory note: Called Dr. Fenton with ABG results and weaning parameters. Extubation orders given. Notified RN. Will carry out.
--- NOTE | 2019-04-24 12:00 | NUR ---
PT EXTUBATED PER MED ORDER AND PLACED ON CMM AT 30%. LUNGS ARE CLEAR AND NO STRIDOR NOTED. CONTINUE TO MONITOR.
--- NOTE | 2019-04-24 12:00 | NUR ---
EXTUBATED PT WITH SUDHA GONZALEZ AT BEDSIDE. PLACED PT ON COOL AEROSOL MASK 30%. HR 100, RR 10, POX 97%. NO STRIDOR NOTED AT THIS TIME. Addendum: 04/24/19 at 1339 by YUNG HOUSER, RT RT CORRECTION: RR 20. NO S/S OF RESPIRATORY DISTRESS.
--- NOTE | 2019-04-24 12:15 | NUR ---
NO CHANGE IN RESPIRATORY STATUS.
--- NOTE | 2019-04-24 13:10 | NUR ---
FRIEND/ PT SEEN AND EXAMINED BY DR JOYCE. PT'S CLOSE FRIEND, PJ ENG, IN TO SEE THE PT. I ASKED HIM IF IT WAS OKAY TO SHARE INFO WITH PJ AND IF IT WAS OKAY TO SET UP A PASSWORD SO SHE CAN GET INFORMATION OVER THE PHONE, AND HE SAID "YES". PASSWORD OF "FAYEED" ESTABLISHED.
--- NOTE | 2019-04-24 15:00 | NUR ---
PT REMAINS STABLE WITH LUNGS CLEAR AND NO RESPIRATORY DISTRESS NOTED.
[2019-04-24] MEDS ORDERED: methylPREDNISolone SOD SUCC 40 MG/ML VL IV SCH (17:15)
--- NOTE | 2019-04-24 18:00 | NUR ---
PER RENETTA KEITA TO DOWNGRADE THE PT TO TELEMETRY.
[2019-04-24] MEDS: TAMSULOSIN HYDROCHLORIDE 0.4 MG CAP PO SCH (18:13)
--- NOTE | 2019-04-24 19:30 | NUR ---
REPORT RECEIVED, ASSUMED CARE.
--- NOTE | 2019-04-24 19:40 | NUR ---
REPORT REPORT GIVEN TO MARYELLEN RNZAIRA. ENDORSED NEED TO GET URINE SAMPLE.
[2019-04-24 20:18] LABS: Urine Bacteria NONE SEEN /hpf (None Seen); Urine Blood 1+ /uL (Negative); Urine Mucus FEW (None Seen); Urine Specific Gravity 1.013 (1.001-1.035); Urine WBC 2 /hpf (0 - 3)
[2019-04-24 20:31] LABS: Protein, Urine 18.5 mg/dL (0.0-11.9)
--- NOTE | 2019-04-24 21:30 | NUR ---
PT REQUESTED TO GO TO [facility], PT UPON TRYING TO STAND UP COULD NOT DUE TO DIZZINESS, SOB AND EXTREME WEAKNESS. PLACED BACK INTO BED NOTICED FRED BLOOD ON ANTHONY UNDER PT. PT O2 SATS DROPPED INTO LOW 80'S. HR 130'S RR 30'S INCREASED O2 N/C TO 6 LTR. TOOK LONG TIME FOR PT TO RECOVER. WILL SEND LABS FOR CBC AND COAG PANEL. AWAIT RESULTS. PLACED PT ONTO BEDPAN.
--- NOTE | 2019-04-24 21:51 | NUR ---
GER ONCOLOGY @ BEDSIDE TO SEE PT. GAVE UPDATE TO MD AND EXPLAINED PT STILL HAVING FRED BLOODY BM.
[2019-04-24 21:52] LABS: Basophils # (auto) 0 uL; Basophils % (auto) 0.1 % (0.0-2.0); Eosinophils # (auto) 0 uL; Hemoglobin 7.9 g/dL (13.5-17.5); Lymphocytes # (auto) 0.4 uL; Monocytes # (auto) 0.8 uL; Monocytes % (auto) 4.1 % (0.0-12.0); Red Blood Cells 2.45 10^6/uL (4.5-5.90)
[2019-04-24 21:54] LABS: Hematocrit 23.2 % (41.0-53.0); Mean Corpuscular Hemoglobin 32.5 pg (28.0-32.0); Mean Corpuscular Hgb Conc. 34.2 g/dL (32.0-36.0); Mean Corpuscular Volume 94.9 fL (80.0-100.0); Neutrophils # (auto) 17.4 uL; Neutrophils % (auto) 93.8 % (37.0-80.0); Nucleated Red Blood Cells % 0.2 %; Platelet Count (auto) 318 10^3/uL (140-450); Red Cell Distribution Width 14.6 % (11.8-14.3); White Blood Cell 18.5 10^3/uL (4.4-10.8)
--- NOTE | 2019-04-24 22:04 | NUR ---
NOTIFIED [facility] NO SIGNIFICANT CHANGE IN BLOOD LEVELS. PT OKAY TO TRANSFER BUT SHOULD REMAIN BED REST UNTIL PT HAS STRENGTH AND TOLERANCE TO BEAR WEIGHT. WILL RECOMMEND IN REPORT FOR PHYSICAL THERAPY CONSULT.
[2019-04-24 22:06] LABS: INR 1.17 (0.9-1.15); Partial Thromboplastin Time 25.1 sec (23.64-32.05)
--- NOTE | 2019-04-24 22:31 | NUR ---
ATTEMPTED TO GET BED SIMPSON OUT FROM UNDER PT, LOWERED HOB TO JUST BELOW 30 DEGREE'S. PT BECAME VERY SOB, HR 120'S RR 30-40'S, DIAPHORETIC O2 SATS MID 80'S STILL ON 6 LTR N/C. NOTIFIED HOSPITALIST AND OBTAINED NEW ORDERS.
--- NOTE | 2019-04-24 23:27 | NUR ---
PT RR AND O2 SATS BACK TO BASELINE WILL TITRATE N/C BACK TO 4 LTR AND SEE HOW PT TOLERATES, WILL NOTIFY RT.
[2019-04-25] VITALS (77 sets, daily range): BP systolic 112–192; BP diastolic 52–98
--- NOTE | 2019-04-25 01:18 | NUR ---
PT HAD 2 VERY LG BLACK LIQUID BM'S, PT STILL DID NOT TOLERATE HAVING HOB BELOW 30 DEGREE'S. Patient bathe/linen change Patient given complete bath. Skin integrity assessed for any changes. Linens changed. Patient repositioned for comfort.
--- NOTE | 2019-04-25 01:27 | NUR ---
PT C/O CHEST PRESSURE ALONG WITH SOB WHENEVER HIS HOB IS LOWERED BELOW 30 DEGREE'S. WILL CONT TO MONITOR AND GIVE IN REPORT.
--- NOTE | 2019-04-25 01:45 | NUR ---
PT HAD BM BLACK LIQUID: PT DID NOT TOLERATE LOWERING HOB AND TURNING WELL. WILL CONT TO MONITOR AND GIVE IN REPORT. NOTIFIED RT OF PT CURRENT CONDITION AND ORDER FOR VQ SCAN TODAY I DO NOT BELIEVE PT WILL TOLERATE HOB BEING LOWERED TO HAVE SCAN . ASKED FOR OXYMIZER TO SEE IF PT TOLERATES BETTER. WILL CONT TO MONITOR AND GIVE IN REPORT.
[2019-04-25] MEDS: IPRATROPIUM BROM 0.5 MG/2.5ML INH SOL NEB SCH ×5 (02:01→22:41)
[2019-04-25] MEDS: ALBUTEROL SULF 2.5 MG/0.5ML(0.5%) NEB SOLN NEB SCH ×5 (02:01→22:41)
[2019-04-25] MEDS: HYDROcodone-ACET 5/325MG TAB PO PRN ×3 (02:39→21:52)
--- NOTE | 2019-04-25 03:10 | NUR ---
PAGE OUT FOR HOSPITALIST REGARDING PT INCREASE IN BACK PAIN.
[2019-04-25] MEDS: LINEZOLID 600MG/300ML 300 ML IV SCH ×2 (03:48→17:56)
[2019-04-25] MEDS: SODIUM CHLORIDE 0.9% 1,000 ML IV SCH (03:49)
[2019-04-25] MEDS: MEROPENEM 500MG IVPB 50 ML IV SCH ×2 (03:49→15:15)
--- NOTE | 2019-04-25 03:57 | NUR ---
PT PLACED ONTO 5 LTR OXYMIZER, TOLERATING WELL.
[2019-04-25 04:03] LABS: Hematocrit 19.4 % (41.0-53.0); Mean Corpuscular Hemoglobin 32.8 pg (28.0-32.0); Mean Corpuscular Hgb Conc. 34.8 g/dL (32.0-36.0); Mean Corpuscular Volume 94.3 fL (80.0-100.0); Platelet Count (auto) 276 10^3/uL (140-450); Red Blood Cells 2.06 10^6/uL (4.5-5.90); Red Cell Distribution Width 14.3 % (11.8-14.3); White Blood Cell 16.5 10^3/uL (4.4-10.8)
[2019-04-25 04:27] LABS: Albumin 2.2 g/dL (3.4-5.0); Calcium 7.7 mg/dL (8.5-10.1); Potassium 4.4 mmol/L (3.5-5.1)
[2019-04-25 04:30] LABS: Hemoglobin 6.8 g/dL (13.5-17.5)
[2019-04-25] MEDS ORDERED: KETOROLAC TROMETH 30 MG/ML 1ML VIAL IV ONE (04:30)
--- NOTE | 2019-04-25 04:30 | NUR ---
LAB HGB 6.8 CRITICAL: NOTIFIED HOSPITALIST AND OPERATOR RECEPTIONIST OBTAINED NEW ORDERS. WILL CONT TO MONITOR AND GIVE IN REPORT.
[2019-04-25 04:31] LABS: Band Neutrophils % (manual) 0; Basophils % (manual) 0 (0.0-2.0); Blast Cells 0; Eosinophils % (manual) 0 (0-7); Metamyelocytes % 0; Myelocytes % 0; Promyelocytes % 0; Reactive Lymphocytes 0
[2019-04-25 04:33] LABS: BUN/Creatinine Ratio 42.8; Bilirubin, Total 0.2 mg/dL (0.2-1.0); Phosphorus 3.3 mg/dL (2.5-4.90); Total Protein 4.8 g/dL (6.4-8.2); Uric Acid 4.5 mg/dL (3.5-7.2)
[2019-04-25 04:51] LABS: Lymphocytes % (manual) 5 (10.0-50.0); Monocytes % (manual) 1 (0-12)
[2019-04-25] MEDS ORDERED: OCTREOTIDE ACETATE 500 MCG/ML VL ONE (05:04)
[2019-04-25] MEDS: OCTREOTIDE ACETATE 500 MCG in SODIUM CHL 0.9% 99 ML IV SCH ×2 (05:18→14:45)
--- NOTE | 2019-04-25 06:05 | NUR ---
STOPPED IVF DURING BLOOD TRANSFUSION. WILL GIVE IN REPORT.
--- NOTE | 2019-04-25 06:30 | NUR ---
CALLED MD [facility] EXT [phone], LEFT MESSAGE REGARDING PT HGB AND CURRENT STATUS. AWAIT CALL BACK WILL CONT TO MONITOR AND GIVE IN REPORT.
--- NOTE | 2019-04-25 07:30 | NUR ---
REPORT REPORT RECEIVED FROM MARYELLEN RNZAIRA. BEDSIDE CHECK DONE.
--- NOTE | 2019-04-25 07:45 | NUR ---
ASSESSMENT PT RESTING IN BED, AWAKE AND A/O X4. ABLE TO HELP MOVE SELF IN BED. LUNGS CLEAR THROUGHOUT, ON O2 AT 4 L/M VIA OXYMIZER WITH O2 SAT OF 100%. TELE SR 84. PALPABLE PULSES TO ALL EXTREMITIES WITH MILD NON PITTING EDEMA NOTED TO BOTH HANDS. SCDS TO BLE. ABD SOFT AND WITH HYPOACTIVE BOWEL SOUNDS. LAST BM WAS ON THE CRUISE COORDINATOR. OLMOS CATHETER DRAINING CLEAR YELLOW URINE. PT CURRENTLY ON SANDOSTATIN DRIP DUE TO RECTAL BLEEDING OF FRED BLOOD ON THE CRUISE COORDINATOR. NO BM AT THIS TIME. PT TURNS SELF FOR COMFORT. KEEPING NPO UNTIL I CAN CONTACT DR GRACE IN CASE PT NEEDS A PROCEDURE. PAGING DR GRACE.
--- NOTE | 2019-04-25 08:10 | NUR ---
ELIMINATION PT USED BEDPAN TO HAVE A SMALL LIQUID TARRY BM. JAVED CARE GIVEN .
[2019-04-25] MEDS ORDERED: ACETAMINOPHEN 500 MG TAB PO PRN (09:30)
[2019-04-25] MEDS: traMADol HCL 50 MG TAB PO PRN ×2 (10:05→18:53)
[2019-04-25] MEDS: SERTRALINE HCL 50 MG TAB PO SCH (10:05)
[2019-04-25] MEDS: methylPREDNISolone SOD SUCC 40 MG/ML VL IV SCH ×2 (10:09→21:51)
[2019-04-25] MEDS: PANTOPRAZOLE 40 MG/10 ML VIAL INJ IV SCH ×2 (10:09→21:51)
[2019-04-25] MEDS: CYANOCOBALAMIN (B-12) 1000 MCG/1 ML VIAL SUBCUT SCH (10:10)
[2019-04-25] MEDS: FOLIC ACID 1 MG in D5W 5% 50 ML IV SCH (10:13)
[2019-04-25 10:27] LABS: Immunoglobulin G, Serum 497 mg/dL (700-1600)
[2019-04-25] MEDS ORDERED: MORPHINE SULF INJ 2 MG/ML SYRINGE 1ML ONE (11:55)
--- NOTE | 2019-04-25 11:59 | NUR ---
MEDICATED WITH MORPHINE 1 MG IVP FOR C/O LOWER BACK PAIN AND ABD PAIN.
[2019-04-25] MEDS ORDERED: IRON SUCROSE COMPLEX 200 MG in SODIUM CHL 0.9% 100 ML IV SCH (12:00)
[2019-04-25] MEDS ORDERED: MORPHINE SULFATE 4 MG/ML SYR/VIAL IV ONE (12:00)
--- NOTE | 2019-04-25 12:23 | NUR ---
Nutrition Follow-up Notes Wt.: 73.6 kg Pt`s successfully extubated sleeping with no family by bedside. pt now advanced to clear liq diet with adequate PO of 100% x1 per RN doc. Est. Needs: 1850 kcal to 2200 kcal (25-30 kcal/kgBW), 58 gms to 73 gms pro (0.8-1.0 gms/kgBW). Will continue to monitor pertinent labs and reassess nutrient need prn Labs: ALB 2.2 L, GLU 159 H, BUN 68 H, CREAT 1.59 H, CA 7.7 L. Skin: Shaan scale 19, mod risk, skin intact per after school coordinator. GI: Pt's no bowel activity reported per after school coordinator. PES: Partially resolved: Increased nutrient needs r/t acute/chronic medical condition aeb pt`s intubated sedated with NPO Altered nutrition related lab values r/t current/chronic medical condition aeb hyperglycemia, elev RFT hypocalcemia, severe hypoalb Will continue to monitor PO intake, skin status, pertinent labs and weight trend. F/u in 2-3 days. Rec.: 1.) advance diet as medically feasible. 2) consider MVI.C bid. 3) consider prostat 1 packet bid. 4) Refer pt to CDE/RD for further nutrition education and weight monitoring upon discharge. 5.) Continue current plan of care.
[2019-04-25] MEDS: TAMSULOSIN HYDROCHLORIDE 0.4 MG CAP PO SCH (18:28)
--- NOTE | 2019-04-25 18:50 | NUR ---
MEDICATED WITH TRAMADOL FOR PT CO PAIN TO LOWER BACK AND LOWER ABD. TLC DRESSING CHANGED BY SUDHA LOUIS, IT IS AGAIN LEAKING.
--- NOTE | 2019-04-25 19:00 | NUR ---
BLOOD DRAWN FROM PT'S TLC FOR POST TRANSFUSION CBC. SENT TO LAB VIA BULLET.
[2019-04-25 19:29] LABS: Basophils # (auto) 0 uL; Eosinophils # (auto) 0 uL; Lymphocytes # (auto) 0.4 uL
--- NOTE | 2019-04-25 19:30 | NUR ---
REPORT REPORT GIVEN TO CHELSY BOJORQUEZ RN. MADE AWARE OF CBC SENT BUT AWAITING RESULTS.
[2019-04-25 19:35] LABS: Basophils % (auto) 0.1 % (0.0-2.0); Hematocrit 23.1 % (41.0-53.0); Lymphocytes % (auto) 2.5 % (10.0-50.0); Mean Corpuscular Hemoglobin 31.8 pg (28.0-32.0); Mean Corpuscular Hgb Conc. 34.8 g/dL (32.0-36.0); Mean Corpuscular Volume 91.4 fL (80.0-100.0); Monocytes # (auto) 0.8 uL; Monocytes % (auto) 5.5 % (0.0-12.0); Neutrophils # (auto) 13.6 uL; Neutrophils % (auto) 91.9 % (37.0-80.0); Nucleated Red Blood Cells % 0.1 %; Platelet Count (auto) 249 10^3/uL (140-450); Red Blood Cells 2.52 10^6/uL (4.5-5.90); Red Cell Distribution Width 15.4 % (11.8-14.3); White Blood Cell 14.8 10^3/uL (4.4-10.8)
--- NOTE | 2019-04-25 20:00 | NUR ---
Opening Shift Note Assumed care of patient, awake and alert, lying on bed, watching TV. Breathing on Oxymizer 5LPM with POX of 99%, adjusted back to 4 LPM, No S/S of distress/SOB, no accessory muscle used, will continue to monitor. Pt stated that he has SOB. Lungs sounded wheezing at middle anterior (LML, LML). Encouraged deep breathing exercise and purse lip breathing, will bring in IS as MD order and instruct on how to use. TLC at right subclavian, CDI site, flushed well, blue port josefa back blood. 20G saline lock on left wrist leaked upon flushing, will d/c later. Pascual's catheter hung to gravity with clear yellowish urine. Put SCD on to both legs after explaining the reason. Bed in low position, call light within reach, all alarms are audible, fall and safety precaution in place. Instructed on POC and to call for assist PRN, will continue to monitor for changes Q1hr and PRN. Pt verbalized understanding on the education and cooperated well.
--- NOTE | 2019-04-25 21:15 | NUR ---
IS Instructed on IS, reason/ benefit/ how to use, with demonstration and verbal teaching. Pt return demonstration well. IS x10 times, 1250 -1500ml. Encouraged to do q1hr while wake up. Continue care.
--- NOTE | 2019-04-25 22:10 | NUR ---
Elimination Pt asked for a bedpan. Pt passed a moderate amount of dark brown+blood tinged watery stool. Perirectal cleaned, pad changed. Pt tolerated well. Pt turn position on bed well. Continue care.
[2019-04-26] VITALS (83 sets, daily range): BP systolic 47–158; BP diastolic 24–89
--- NOTE | 2019-04-26 00:09 | NUR ---
Condition update Pt slept well, v/s and condition stable, no s/s of distress. Continue care.
--- NOTE | 2019-04-26 01:30 | NUR ---
Elimination/ Patient bathe/linen change Pt pressed a call light, asked for a bedpan. Pt passed a moderate amount of loose dark brown/ red stool. Patient given complete bath with CHG wipes. Perirectal, perineum, Pascual's catheter care done. Z-guard applied to per area. Skin integrity assessed for any changes, skin intact. Sacrum intact and no redness. Complete linens changed. Pt able to lay flat during the activity, tolerated fairly. Patient repositioned for comfort. After the bathe, Pt asked for pain killer, will administer as MD order. Continue care. Addendum: 04/26/19 at 0237 by Ron Claros RN Mouth care offered, Pt refused for now, Pt stated that he will does it later.
[2019-04-26] MEDS: HYDROcodone-ACET 5/325MG TAB PO PRN (02:17)
--- NOTE | 2019-04-26 02:45 | NUR ---
Elimination Pt passed a large amount of loose dark brown/red stool. Perirectal cleaned. Pt asked to go one more time. Put Pt back on bed sanchez and will clean later.
--- NOTE | 2019-04-26 03:00 | NUR ---
Elimination/ melena/ GIB Pt passed moderate to large amount of loose dark brown/ red stool. Lis rectal and perineum cleaned. Pt wanted to passed BM more. This nurse drawn the blood to sent the LABs, will monitor H&H and v/s.
--- NOTE | 2019-04-26 03:20 | NUR ---
Elimination/ melena Pt pressed a call light to clean after having BM. Perirectal, perineum cleaned. Pt able to turn by self with SOB with exertion. After finish cleaning, Pt had audible wheezing with WOB. Emery position adjusted, increased Oxymizer to 6LPM. Paged RT.
--- NOTE | 2019-04-26 03:30 | NUR ---
Issue, BM/ OOB Pt asked to get out of bed to use a toilet multiple times, despite explaining of the fall risk, accident risk, low BP and high HR. Pt insisting to get out bed, sitting and using a toilet. Pt refused a bed sanchez. This nurse consulted charge nurse and decided to help Pt out of bed with many assistants. This nurse and 2 other nurses went in the room with a BS. The nurse asked if the patient would like to go to the bathroom. Patient said she wants to go to the real toilet. The nurse said I have a bedside commode and a toilet up there. The nurse pointed at the toilet in ICU room, near bedside. The patient asked dose it flush? The nurse flushed the toilet to show the patient. The nurse asked if the patient wants to go to the bathroom. The patient said I'll think about it and I'll let you know. The nurse confirmed with the patient again, Pt refused to go to the toilet in ICU room. Addendum: 04/26/19 at 0838 by Ron Claros RN Disregard note, wrong patient.
[2019-04-26] MEDS: ALBUTEROL SULF 2.5 MG/0.5ML(0.5%) NEB SOLN NEB SCH ×6 (03:40→22:14)
[2019-04-26] MEDS: IPRATROPIUM BROM 0.5 MG/2.5ML INH SOL NEB SCH ×6 (03:40→22:14)
[2019-04-26 03:41] LABS: Basophils # (auto) 0 uL; Basophils % (auto) 0.1 % (0.0-2.0); Eosinophils # (auto) 0 uL; Lymphocytes # (auto) 0.4 uL; Mean Corpuscular Hemoglobin 31.8 pg (28.0-32.0); Mean Corpuscular Hgb Conc. 34.7 g/dL (32.0-36.0)
[2019-04-26 03:43] LABS: Hematocrit 18.1 % (41.0-53.0); Lymphocytes % (auto) 2.5 % (10.0-50.0); Mean Corpuscular Volume 91.5 fL (80.0-100.0); Monocytes # (auto) 0.6 uL; Monocytes % (auto) 3.6 % (0.0-12.0); Neutrophils % (auto) 93.8 % (37.0-80.0); Nucleated Red Blood Cells % 0.2 %; Platelet Count (auto) 241 10^3/uL (140-450); Red Blood Cells 1.98 10^6/uL (4.5-5.90); Red Cell Distribution Width 15.9 % (11.8-14.3)
[2019-04-26 03:49] LABS: Hemoglobin 6.3 g/dL (13.5-17.5)
--- NOTE | 2019-04-26 03:52 | NUR ---
Hypotension and low HB BP 70's /50's, HR 80's, Labs called to notified Hb of 6.3, Pt c/o dizziness after the cleaning, paged Hospitalist to notified.
[2019-04-26 03:58] LABS: Calcium 7.5 mg/dL (8.5-10.1); Magnesium 2.2 mg/dL (1.6-2.6); Potassium 4.9 mmol/L (3.5-5.1)
[2019-04-26 04:02] LABS: BUN/Creatinine Ratio 44.8; Bilirubin, Total 0.4 mg/dL (0.2-1.0)
[2019-04-26] MEDS: LINEZOLID 600MG/300ML 300 ML IV SCH ×2 (04:15→17:28)
[2019-04-26] MEDS: MEROPENEM 500MG IVPB 50 ML IV SCH ×2 (04:16→21:00)
--- NOTE | 2019-04-26 04:31 | NUR ---
Low HB, Hospitalist called back [employer] Message Broker Developer called back, ordered to give 2 units of PRBC.
--- NOTE | 2019-04-26 06:30 | NUR ---
See blood transfusion record. Addendum: 04/26/19 at 0631 by Ron Claros RN Amended: Links added. Addendum: 04/26/19 at 0813 by Ron Claros RN The 1st PRBC transfused at 6.35am.
--- NOTE | 2019-04-26 06:50 | NUR ---
Condition update/ Elimination Pt lying on bed with even and nonlabored at rest. POX difficult to measured due to poor perfusion and cool hands. Changed POX x2 to check O2 saturation. Pt notified that he has passed BM. Perirectal and perineum cleaned. Pt turned position on bed with assist. Pt tolerated poorly with activity and WOB, adjusted Oxymizer to 10LPM. After cleaning, Pt passed BM right away, will clean later when Pt more stable and less SOB. Repositioned on high frias's position. Continue to observe.
--- NOTE | 2019-04-26 07:10 | NUR ---
Respiratory/ SOB Pt breathing was not better after resting, SOB with accessory used, POX with poor perfusion to measure. Paged RT for assessment.
--- NOTE | 2019-04-26 07:15 | NUR ---
Respiratory/ grasping/ intubation Nurses and RT assessed Pt at bedside together. Pt was gradually deteriorating, grasping with less responsive. EKG in ST, positive pulses. Pt able to nod slowly, nonverbal. The team paged MD for intubation due to respiratory distress. Etomidate 20mg given at 07.27am. Intubated at 07.30am. No cardiac arrest, HR high 90's - 120.
[2019-04-26] MEDS ORDERED: ETOMIDATE (2MG/ML) 20ML VIAL IV ONE ×2 (07:20→07:24)
[2019-04-26] MEDS ORDERED: SUCCINYLCHOLINE CHLORIDE 20 MG/ML 10ML VIAL IV ONE (07:24)
[2019-04-26] MEDS ORDERED: PROPOFOL 100 ML IV ONE (07:31)
[2019-04-26] MEDS ORDERED: MIDAZOLAM DRIP 50 mg/50mL 50 ML IV ONE (08:10)
[2019-04-26] MEDS ORDERED: NOREPINEPHRINE 8 MG/250ML KIT 250 ML IV ONE (08:19)
--- NOTE | 2019-04-26 08:30 | NUR ---
R.T UNABLE TO OBTAIN POST INTUBATION ABG DUE TO HYPOTENSION. PT BEING STARTED ON PRESSORS. SEE IV SPREADSHEET/ VS.
--- NOTE | 2019-04-26 09:00 | NUR ---
ELIMINATION PATIENT HAD A LARGE DARK RED BLOODY BM, WITH DIME SIZE CLOTS NOTED. SKIN CLEANSED. SACRUM INTACT. BLOOD TRANSFUSION REMAINS INFUSING.
[2019-04-26] MEDS: SODIUM CHLORIDE 0.9% 1,000 ML IV SCH ×2 (09:05→13:19)
--- NOTE | 2019-04-26 09:22 | NUR ---
DR. GUZMAN PAGED TO NOTIFY OF CHANGE OF STATUS. ALONG WITH PLAN TO DO EGD TODAY. NO FAMILY TO CONTACT. PHYSICAL CALLED TO NOTIFY TO OBTAIN CONSENTS. EGD SCHEDULED FOR 1330 TODAY. AWAITING CALLBACK.
--- NOTE | 2019-04-26 09:33 | NUR ---
KILN FIREMAN PAGED DR. KUMARI PAGED TO NOTIFY OF INTUBATION WITH CURRENT BLOOD GAS. R.T DECREASED FI02 TO 30%.
[2019-04-26] MEDS: SERTRALINE HCL 50 MG TAB PO SCH (10:00)
--- NOTE | 2019-04-26 10:07 | NUR ---
DR. KUMARI CALLED BACK. NEW ORDERS IN PLACE. Estephania PAGED. BRONCHOSCOPY FOR TODAY.
--- NOTE | 2019-04-26 11:42 | NUR ---
AT BEDSIDE. DR. GUZMAN UPDATED ON PATIENTS STATUS. MD SIGNED CONSENT FOR PROCEDURES PENDING TODAY. SEE MD ORDERS/ NOTES. AWAITING EGD. NO ACTIVE BLEEDING NOTED RECTALLY AT THIS TIME. ABD. SOFT TO TOUCH.
--- NOTE | 2019-04-26 11:51 | NUR ---
PATIENT HYPOTENSIVE 69/38. LEVOPHED INCREASED. PAGED FOR SECOND PRESSOR. AWAITING CALLBACK.
[2019-04-26] MEDS ORDERED: SODIUM FERR GLUC 62.5MG/5ML 125 MG in SODIUM CHL 0.9% 100 ML IV SCH (12:00)
--- NOTE | 2019-04-26 12:10 | NUR ---
PROCEDURE PERFORMED AT BEDSIDE SEE NOTES FOR RESULTS. Addendum: 04/26/19 at 1213 by Saritha Gates RN VS 92/58 HR 116 POX 100%. Addendum: 04/26/19 at 2012 by Saritha Gates RN EGD
[2019-04-26] MEDS ORDERED: VASOPRESSIN 50 UNITS in D5W 5% 247.5 ML IV SCH (12:30)
--- NOTE | 2019-04-26 12:40 | NUR ---
OGT PLACED PLACEMENT VERIFIED VIA AUSCULTATION. NO STOMACH CONTENTS NOTED WITH PISTON ASPIRATION. OGT SECURED IN PLACE.
[2019-04-26] MEDS ORDERED: NOREPINEPHRINE BITARTRATE 32 MG in D5W 5% 218 ML IV SCH (12:55)
[2019-04-26] MEDS ORDERED: PROPOFOL 100 ML IV SCH (12:55)
[2019-04-26] MEDS: FOLIC ACID 1 MG in D5W 5% 50 ML IV SCH (13:17)
[2019-04-26] MEDS: PANTOPRAZOLE 40 MG/10 ML VIAL INJ IV SCH (13:18)
[2019-04-26] MEDS: methylPREDNISolone SOD SUCC 40 MG/ML VL IV SCH (13:18)
[2019-04-26] MEDS: CYANOCOBALAMIN (B-12) 1000 MCG/1 ML VIAL SUBCUT SCH (13:18)
[2019-04-26] MEDS ORDERED: MIDAZOLAM DRIP 50 mg/50mL 50 ML IV SCH (13:39)
[2019-04-26] MEDS ORDERED: SODIUM BICARBONATE 8.4% INJ 50ML SYRINGE ONE (15:41)
--- NOTE | 2019-04-26 15:45 | NUR ---
RT ASSIST DURING BRONCH, PT XIMENA. WELL. PLACED PT ON 100% FIO2
[2019-04-26] MEDS ORDERED: EPINEPHrine HCL 1 MG/1 ML AMP ONE (15:46)
[2019-04-26] MEDS ORDERED: LIDOCAINE 2%HCL (LOCAL ANESTH.) INJ 20ML MDV ONE (15:46)
[2019-04-26] MEDS ORDERED: LIDOCAINE HCL 2% TOP JELLY 5ML TOP ONE (15:46)
[2019-04-26] MEDS ORDERED: SODIUM CHLORIDE LOCK 40 ML ONE (15:46)
[2019-04-26] MEDS ORDERED: ACETYLCYSTEINE 20%(200MG/ML) SOL 4ML ONE ×2 (15:47)
[2019-04-26] MEDS ORDERED: PHENYLEPHRINE INJ 40 MG in SODIUM CHL 0.9% 250 ML IV SCH (15:48)
--- NOTE | 2019-04-26 15:55 | NUR ---
AT BEDSIDE PERFORMING BEDSIDE BRONCHOSCOPY WITH . PT VENTED/ SEDATED WITH R.T AT BEDSIDE.
[2019-04-26] MEDS ORDERED: SODIUM BICARBONATE 8.4 % INJ 50ML VIAL IV ONE (16:00)
--- NOTE | 2019-04-26 16:12 | NUR ---
PROCEDURE COMPLETED. VSS HR 114 BP 98/37, POX 99% CXR IN PLACE.
--- NOTE | 2019-04-26 16:32 | NUR ---
assessment Patient is a 73 year old male on a vent. I called patients friend and emergency contact Seema Vaughn. Per Seema prior to admission patient lived with her and her Nathan and was very independent. Per Seema patient has no family and has been with her and her for the past 10 years. Patient has no need for DME. Per Seema patient will return home with her on discharge. I informed Seema we would discharge plan after patient is extubated and prior to discharge. Seema verbalized understanding. Addendum: 04/26/19 at 1741 by Flora WOODWARD Amended: Links added.
--- NOTE | 2019-04-26 17:39 | NUR ---
ELIMINATION PATIENT HAD A MODERATE DARK RED BM WITH DIME SIZE CLOTS NOTED. SKIN CLEANSED. SKIN REMAINS INTACT. AWAITING CBC. DARK COFFEE GROUNDS NOTED FROM OGT. OGT TO LIS.
[2019-04-26] MEDS: TAMSULOSIN HYDROCHLORIDE 0.4 MG CAP PO SCH (18:00)
--- NOTE | 2019-04-26 18:35 | NUR ---
FRIEND/ROOMATE FRIEND/ ROOMATE BRANDEE CALLED TO GET AN UPDATE. BRANDEE STATING PATIENT DOES HAVE A DAUGHTER AND WAS BUT NOT LONGER. BRANDEE STATING PATIENT DOES NOT HAVE ANY CONTACT WITH HIS DAUGHTER NOR HAS HE EVER WANTED ANY CONTACT. BRANDEE HAS BEEN A ROOMATE FOR 9 YEARS NOW AND CLAIMS TO BE HIS "BEST FRIEND". \\ LITA CONTACT INFORMATION: [phone].
[2019-04-26 19:21] LABS: Hematocrit 26.4 % (41.0-53.0); Hemoglobin 8.8 g/dL (13.5-17.5); Mean Corpuscular Hemoglobin 29.8 pg (28.0-32.0); Mean Corpuscular Hgb Conc. 33.4 g/dL (32.0-36.0); Mean Corpuscular Volume 89.1 fL (80.0-100.0); Platelet Count (auto) 177 10^3/uL (140-450); Red Blood Cells 2.97 10^6/uL (4.5-5.90); Red Cell Distribution Width 15.3 % (11.8-14.3); White Blood Cell 27.4 10^3/uL (4.4-10.8)
--- NOTE | 2019-04-26 19:24 | NUR ---
CENTRAL LINE PLACEMENT BEING PLACED AT BEDSIDE BY DR. KUMARI WITH BEDSIDE U/S.
--- NOTE | 2019-04-26 19:30 | NUR ---
REPORT GIVEN TO NOC NURSE UPDATED ON PLAN OF CARE, AWAITING LABS AT THIS TIME. PT REMAINS INTUBATED/ SEDATED/ MULTIPLE PRESSORS.
[2019-04-26 19:33] LABS: Calcium 7.1 mg/dL (8.5-10.1)
[2019-04-26 19:40] LABS: Albumin 1.6 g/dL (3.4-5.0); BUN/Creatinine Ratio 33.5; Bilirubin, Total 0.8 mg/dL (0.2-1.0); Total Protein 3.1 g/dL (6.4-8.2)
[2019-04-26 19:43] LABS: Potassium 5.8 mmol/L (3.5-5.1)
[2019-04-26 19:46] LABS: Basophils % (manual) 0 (0.0-2.0); Blast Cells 0; Eosinophils % (manual) 0 (0-7); Metamyelocytes % 0; Myelocytes % 0; Promyelocytes % 0; Reactive Lymphocytes 0
--- NOTE | 2019-04-26 20:00 | NUR ---
RECEIVED REPORT AND ASSUMED CARE; SEE INTERVENTIONS FOR ASSESSMENT; SEE IV SPREADSHEET FOR GTTS; WILL CONT. TO MONITOR.
[2019-04-26 20:15] LABS: Band Neutrophils % (manual) 1; Lymphocytes % (manual) 4 (10.0-50.0); Monocytes % (manual) 8 (0-12)
--- NOTE | 2019-04-26 21:25 | NUR ---
DR. KUMARI PLACED LT. SC TLC AND A RT. RADIAL RAOUL; WILL AWAIT CXR TO CONFIRM PLACEMENT.
--- NOTE | 2019-04-26 23:28 | NUR ---
PT. BLOOD PRESSURE DROPPING AND THEN HEART RATE WENT FROM 109 TO 61; PLACED PT. ON DEFIB PADS AND WHILE PLACING PADS PT. WENT INTO V-FIB; PLACED PT. ON BACK ON TOP OF BACK BOARD AND BEGAN CHEST COMPRESSIONS (23:31) AND CODE BLUE CALLED; PT. CODED UNTIL 23:53 WHEN PHYSICIAN (Irma RUTH MD) CALLED TIME OF ; PT. HAS NO NEXT OF KIN LISTED. SEE CODE SHEET FOR MORE INFORMATION.
[2019-04-26] MEDS ORDERED: ATROPINE SULF 1 MG/10ml SYR IV ONE (23:53)
[2019-04-26] MEDS ORDERED: EPINEPHrine HCL 1 MG/10 ML SYRG IV ONE (23:53)
--- NOTE | 2019-04-27 00:07 | NUR ---
[facility] CLEARED PATIENT AND CASE# [id number] GIVEN; S/W Jazmin LEE.
--- NOTE | 2019-04-27 00:53 | NUR ---
S/W JAVA WEB APPLICATION DEVELOPERGertrudis, AND SHE WILL LOCATE NEXT OF KIN AND HAVE THEM CALL ME.
--- NOTE | 2019-04-27 01:15 | NUR ---
BODY RELEASED BY CORPORATE TRAFFIC MANAGER WITH CASE# [id number]; Gertrudis MORRIS IS CORPORATE TRAFFIC MANAGER.
--- NOTE | 2019-04-27 01:38 | NUR ---
S/W DAUGHTER, ANIMAL NUTRITION CONSULTANT LEFT MESSAGE TO HAVE HER CALL ME; DAUGHTER STATED," I HAVE NOT SPOKE WITH THIS MAN FOR OVER TWENTY YEARS, AND HOW DID YOU GET THIS NUMBER-I DO NOT WANT TO HAVE ANYTHING TO DO WITH MAKING ARRANGEMENTS." i EXPLAINED TO DAUGHTER THAT THE ANIMAL NUTRITION CONSULTANT HAD TO INFORM A NEXT OF KIN TO OF PATIENT AND THIS WAS ONLY A COURTESY CALL TO INFORM OF AND THAT SHE DOES NOT NEED TO BE A PART OF THE ARRANGEMENTS FOR PATIENT.
--- NOTE | 2019-04-27 05:37 | NUR ---
PT. READY TO BE TRANSFERRED TO [facility]; SECURITY AT BEDSIDE TO TRANSFER.
--- NOTE | 2019-04-27 06:15 | NUR ---
S/W FRIEND THAT IS LISTED A CONTACT-BRANDEE # , AND HE INFORMED ME TO CONTACT A PJ ALBERTINA AT # AND SHE WOULD HAVE INFO. TO WHAT TO DO WITH THE PATIENT AND WHAT MORTUARY; S/W PJ AND SHE WILL FIBND THE INFORMATION AND CALL IT TO THE DAY FLOOR AND [employer] I HAD ADVISED.
--- NOTE | 2019-05-06 18:29 | NUR ---
Daughter called Patients daughter called and stated she is going to have Seema Vaughn or Franco handle the cremation arrangements for her father. She is going to assist with choosing the facility but they will be paying for the arrangements.
--- NOTE | 2019-05-07 19:25 | NUR ---
Andrea chosen Seema Roderick, the family friend who handling the cremation arrangements called and stated [facility] will be picking up the body tomorrow after she makes final payment. Her number is [phone]
[2019-05-08] MEDS ORDERED: EPINEPHrine HCL 0.5 ML NEB ONE (14:21)
== END 2019-04-26 23:54 | disposition expired | DRG 208 ==
LOC: ER 23:23 → EDBD 23:23 → TELE 23:24 → ICU WEST 04-23 15:56
PROVIDERS: ADMIT Nurse Practitioner Family; ATTEND Internal Medicine
PROC: 02HV33Z Insertion of Infusion Device into Superior Vena Cava, Percutaneous Approach (ICD-10-PCS; 2019-04-22)
PROC: 5A09357 Assistance with Respiratory Ventilation, Less than 24 Consecutive Hours, Continuous Positive Airway Pressure (ICD-10-PCS; 2019-04-22)
PROC: 5A1945Z Respiratory Ventilation, 24-96 Consecutive Hours (ICD-10-PCS; 2019-04-22)
PROC: 0BH17EZ Insertion of Endotracheal Airway into Trachea, Via Natural or Artificial Opening (ICD-10-PCS; 2019-04-22)
PROC: 0W3P8ZZ Control Bleeding in Gastrointestinal Tract, Via Natural or Artificial Opening Endoscopic (ICD-10-PCS; 2019-04-22)
PROC: 30233K1 Transfusion of Nonautologous Frozen Plasma into Peripheral Vein, Percutaneous Approach (ICD-10-PCS; 2019-04-23)
PROC: 0B948ZZ Drainage of Right Upper Lobe Bronchus, Via Natural or Artificial Opening Endoscopic (ICD-10-PCS; principal; 2019-04-23 13:00)
PROC: 30233N1 Transfusion of Nonautologous Red Blood Cells into Peripheral Vein, Percutaneous Approach (ICD-10-PCS; 2019-04-25)
PROC: 5A12012 Performance of Cardiac Output, Single, Manual (ICD-10-PCS; 2019-04-26)
PROC: 5A1935Z Respiratory Ventilation, Less than 24 Consecutive Hours (ICD-10-PCS; 2019-04-26)
PROC: 0BH17EZ Insertion of Endotracheal Airway into Trachea, Via Natural or Artificial Opening (ICD-10-PCS; 2019-04-26)
PROC: 0W3P8ZZ Control Bleeding in Gastrointestinal Tract, Via Natural or Artificial Opening Endoscopic (ICD-10-PCS; 2019-04-26)
PROC: 03HY32Z Insertion of Monitoring Device into Upper Artery, Percutaneous Approach (ICD-10-PCS; 2019-04-26)
PROC: 4A133B1 Monitoring of Arterial Pressure, Peripheral, Percutaneous Approach (ICD-10-PCS; 2019-04-26)
PROC: 4A133J1 Monitoring of Arterial Pulse, Peripheral, Percutaneous Approach (ICD-10-PCS; 2019-04-26)
PROC: 0B928ZZ Drainage of Carina, Via Natural or Artificial Opening Endoscopic (ICD-10-PCS; 2019-04-26)
PROC: 0B918ZZ Drainage of Trachea, Via Natural or Artificial Opening Endoscopic (ICD-10-PCS; 2019-04-26)
PROC: 02HV33Z Insertion of Infusion Device into Superior Vena Cava, Percutaneous Approach (ICD-10-PCS; 2019-04-26)
PROC: B548ZZA Ultrasonography of Superior Vena Cava, Guidance (ICD-10-PCS; 2019-04-26)
DX: J96.01 Acute respiratory failure with hypoxia (principal); J18.1 Lobar pneumonia, unspecified organism; N17.0 Acute kidney failure with tubular necrosis; J98.11 Atelectasis; N39.0 Urinary tract infection, site not specified; J45.901 Unspecified asthma with (acute) exacerbation; J43.9 Emphysema, unspecified; K26.9 Duodenal ulcer, unspecified as acute or chronic, without hemorrhage or perforation; D64.9 Anemia, unspecified; N28.89 Other specified disorders of kidney and ureter; N32.0 Bladder-neck obstruction; D50.9 Iron deficiency anemia, unspecified; N18.3 Chronic kidney disease, stage 3 (moderate); R57.8 Other shock; F17.210 Nicotine dependence, cigarettes, uncomplicated; I12.9 Hypertensive chronic kidney disease with stage 1 through stage 4 chronic kidney disease, or unspecified chronic kidney disease; Z79.899 Other long term (current) drug therapy; Z85.6 Personal history of leukemia; Z87.440 Personal history of urinary (tract) infections
CPT/HCPCS: 31645; 36415; 36556; 36600; 43255; 71045; 80048; 80053; 81001; 82270; 82570; 82607; 82728; 82746; 82784; 82805; 83010; 83036; 83540; 83550; 83615; 83735; 83880; 83883; 84100; 84154; 84156; 84300; 84443; 84484; 84550; 85007; 85025; 85027; 85045; 85379; 85610; 85730; 86334; 86850; 86880; 86900; 86901; 86920; 87040; 87070; 87077; 87081; 87086; 87205; 92950; 93005; 93306; 93970; 94002; 94003; 94640; 94660; 96374; 96375; C9113; G0378; J0171; J0330; J1756; J1885; J1956; J2185; J2250; J2704; J3490; J7060